=== PATIENT | female | born 1955 | race Caucasian/White ===

== ENCOUNTER → 2020-07-05 10:49 | Outpatient (CLI) | payer OTHER, SELFPAY ==
[2020-07-05 11:28] LABS: COVID19 -Nasal RAPID Negative (Negative)
== END ==
PROVIDERS: PCP Family Medicine; Visit Provider Specialist
DX: Z01.812 Encounter for preprocedural laboratory examination (principal); Z20.822 Contact with and (suspected) exposure to COVID-19
CPT/HCPCS: 87635

== ENCOUNTER 2020-07-06 08:03 | Day surgery (SDC) | payer OTHER, SELFPAY ==
[2020-07-06] VITALS (7 sets, daily range): BP systolic 97–143; BP diastolic 57–88; PULSE 61–77; RESP 7–16; TEMP 36.3–36.8; O2SAT 93–97; BMI 38.1
--- NOTE | 2020-07-06 | PATH_ITS ---
[facility] Accession Number: [id number] . 01 Material submitted: . PART A: endocervix - ENDOCERVICAL POLYP PART B: endometrium - ENDOMETRIAL CURETTINGS . 01 Clinical history: . HYSTEROSCOPY D/C . 02 Diagnosis: A. Endocervix, Polyp, Biopsy: Benign endocervical polyp. No evidence of neoplasia. . B. Endometrium, Curettings: Scant endometrial strips and squamous epithelium. No evidence of neoplasia or hyperplasia. MRV 07/10/2020 0945 Local . 02 Electronically signed: . Megan Contreras MD, Pathologist NPI- [id number] . 01 Gross description: . Part A: ENDOCERVICAL POLYP: Received in formalin is 1 fragment(s) of ford, soft tissue measuring 0.4 x 0.3 x 0.3 cm submitted entirely in 1 cassette(s) Part B: ENDOMETRIAL CURETTINGS: Received in formalin are minute fragments of mucoid and hemorrhagic material measuring 0.2 x 0.2 x 0.1 cm in aggregate. Submitted in toto in 1 cassette. /QBJ 07/07/2020 0848 Local . 02 Pathologist provided ICD-10: N95.0 . 02 CPT . 050300, [id number] Performed at: 01 [facility] [address], [place], [place] [id number] MD Clive Pelayo MD Phone: [phone] Performed at: 02 [facility] [address] [place], [place] [id number] MD Megan Contreras MD Phone: [phone]
[2020-07-06] MEDS: LACTATED RINGERS 1,000 ML 42 ML IV (08:21)
[2020-07-06] MEDS: ACETAMINOPHEN 325 MG TABLET 650 MG PO (08:21)
[2020-07-06] MEDS: SCOPOLAMINE 1 PATCH TOP (08:22)
--- NOTE | 2020-07-06 08:38 | PM.PREOP ---
Pre-operative Note COVID-19 COVID-19 status: Negative Result date/Date tested (Pos, Neg/Pending): 07/05/20 Interval Note History & Physical reviewed/Exam performed by Physician: Yes Changes to H&P: No
--- NOTE | 2020-07-06 09:21 | SUR.OPER ---
Lithotomy on padded OR bed, head on pillow, arms secured on padded arm boards at <90 degrees abduction. Legs secured in padded yellow fins stirrups.
--- NOTE | 2020-07-06 09:37 | PM.OP.1 ---
Operative Date/Time/Diagnoses Date of procedure: 07/06/20 Time of procedure: 09:38 Pre-op diagnosis: Postmenopausal bleeding Post-op diagnosis: same Procedure & Clinicians Procedure: Hysteroscopy with resection of endocervical polyp and endometrial curettage Same procedure as scheduled: Yes Indications: Postmenopausal bleeding Surgeon: Yajaira Giron Click Yes if Unassisted: Yes Anesthesia Type: General Operative Notes Findings: Endocervical polyp. Thin endometrium with no endometrial pathology Closure Type: not applicable Specimen(s): other (Endocervical polyp and endometrial curettage) Estimated Blood Loss (mL): 1 Blood products transfused: none Procedure in detail: The patient was brought to the operating room where she underwent general anesthesia. She was placed in low stirrups She was prepped and draped in usual sterile fashion with pulsatile stockings in place and functional, warming in place. A check system was reviewed with the staff in the room prior to beginning the case. A single-tooth tenaculum was placed on the anterior lip of the cervix and the uterus dilated to #8 Hegar dilator. The hysteroscope was placed into the uterus with a sorbitol solution running and under constant suction. The resecting loop set at 80 W of cutting was used to resect the endocervical polyp. A endometrial curettage was performed. The polyp and the endometrial curettage was sent to pathology. The patient went to recovery room in good condition counts of instruments and sponges were correct. The sorbitol solution I=O approximately 500 mL. Complications: none Post-operative Condition: stable Disposition: same day surgery Plan for aftercare: Home when awake and stable. Patient will be contacted with biopsy results.
== END 2020-07-06 10:45 | disposition home or self-care (01) ==
PROVIDERS: PCP Family Medicine; Referring Provider Specialist; Visit Provider Specialist
PROC: 0UDB8ZZ Extraction of Endometrium, Via Natural or Artificial Opening Endoscopic (ICD-10-PCS; CPT 58558; principal; 2020-07-06 09:15)
DX: N84.1 Polyp of cervix uteri (principal); I10 Essential (primary) hypertension; K21.9 Gastro-esophageal reflux disease without esophagitis; F41.9 Anxiety disorder, unspecified; E66.9 Obesity, unspecified; Z68.38 Body mass index [BMI] 38.0-38.9, adult
CPT/HCPCS: 58558; J1100; J1885; J2250; J2405; J2704

== ENCOUNTER → 2024-09-26 16:36 | Outpatient (CLI) | payer OTHER, SELFPAY | PROVIDERS: PCP Family Medicine; Referring Provider Urology; Visit Provider Urology | DX: R39.9 Unspecified symptoms and signs involving the genitourinary system (principal); N95.2 Postmenopausal atrophic vaginitis; D41.4 Neoplasm of uncertain behavior of bladder; Z85.528 Personal history of other malignant neoplasm of kidney; D30.01 Benign neoplasm of right kidney | CPT/HCPCS: 81002; 87086; 99213 ==